=== PATIENT | male | born 1955 | race Caucasian/White ===

== ENCOUNTER 2019-11-25 12:33 | Inpatient (IN) | payer OTHER ==
[~2019-11-25] VITALS: Ht 182.9 cm; Wt 98.0 kg
[2019-11-25 14:56] LABS: Basophils # (auto) 0 10 ^3/uL (0-0.2); Basophils % (auto) 0.4 % (0.0-2.0); Eosinophils # (auto) 0.7 10 ^3/uL (0-0.8); Eosinophils % (auto) 8.3 % (0.0-7.0); Hematocrit 36.8 % (41.0-53.0); Hemoglobin 11.9 g/dL (13.5-17.5); Lymphocytes # (auto) 2.6 10 ^3/uL (0.4-5.4); Lymphocytes % (auto) 29.2 % (10.0-50.0); Mean Corpuscular Hgb Conc. 32.3 g/dL (32.0-36.0); Monocytes # (auto) 0.7 10 ^3/uL (0-1.3); Monocytes % (auto) 8.3 % (0.0-12.0); Neutrophils # (auto) 4.7 10 ^3/uL (1.6-8.6); Neutrophils % (auto) 53.8 % (37.0-80.0); Platelet Count (auto) 283 10^3/uL (140-450); Red Blood Cells 4.09 10^6/uL (4.5-5.90); Red Cell Distribution Width 16.1 % (11.8-14.3); White Blood Cell 8.8 10^3/uL (4.4-10.8)
[2019-11-25 15:14] LABS: BUN/Creatinine Ratio 11.8
[2019-11-25 15:15] LABS: Albumin 2.9 g/dL (3.4-5.0); Calcium 8.6 mg/dL (8.5-10.1)
[2019-11-25 15:17] LABS: Bilirubin, Total 0.2 mg/dL (0.2-1.0); Total Protein 7.4 g/dL (6.4-8.2)
[2019-11-25 15:20] LABS: INR 0.97 (0.9-1.15); Partial Thromboplastin Time 33.8 sec (23.64-32.05)
[2019-11-25] MEDS ORDERED: NITROGLYCERIN 0.4 MG SL TAB SL PRN (16:45)
[2019-11-25] MEDS ORDERED: MORPHINE SULF INJ 2 MG/ML SYRINGE 1ML IV PRN (16:45)
[2019-11-25] MEDS ORDERED: VANCOMYCIN PER PHARMACY 0 MG IV SCH (16:45)
[2019-11-25] MEDS ORDERED: DEXTROSE (50%) 50ML SYRG IV PRN (16:45)
[2019-11-25] MEDS ORDERED: FUROSEMIDE 20 MG/2 ML VIAL IV ONE (16:45)
[2019-11-25] MEDS: VANCOMYCIN 1GM/250ML 250 ML IV SCH (18:25)
[2019-11-25] MEDS: ONDANSETRON HCL 4 MG/2 ML VIAL IV PRN (18:26)
[2019-11-25] MEDS: ACCU-CHEK COMFORT CURVE STRIP VI SCH ×2 (18:26→23:44)
[2019-11-25] MEDS: MORPHINE SULF INJ 2 MG/ML SYRINGE 1ML IV PRN (18:26)
[2019-11-25] MEDS: InsuLIN REG 1unit/0.01ml Soln (100units/ml) SC SCH ×2 (18:35→23:44)
[2019-11-25] MEDS: IPRATROPIUM BROM 0.5 MG/2.5ML INH SOL NEB SCH (19:18)
[2019-11-25] MEDS: ALBUTEROL SULF 2.5 MG/0.5ML(0.5%) NEB SOLN NEB SCH (19:19)
[2019-11-25 20:00] VITALS: BP 114/61
--- NOTE | 2019-11-25 20:00 | NUR ---
Telemetry admit from [facility] admitted to Telemetry unit. Patient oriented to primary RN, unit, room, bed, and unit policies regarding patient care and visiting hours. Patient now on continuous telemetry monitoring, tele box #[id number] and telemetry reading on arrival to unit is sinus rhythm 90s. Patient weighed by bedscale and encouraged to call if they need something. All questions and concerns addressed, patient verbalized understanding. Bed in lowest locked position, call light within reach, side rails up x2, fall precautions in place. Will continue to monitor for changes Q1hr and PRN.
[2019-11-25 20:30] VITALS: BP 114/61
[2019-11-25] MEDS: ATORVASTATIN 20 MG TAB PO SCH (21:40)
[2019-11-25] MEDS: PIPERACILLIN-TAZOB 3.375GM 100 ML IV SCH (21:40)
[2019-11-26] MEDS ORDERED: NORT25CA PO (01:31)
[2019-11-26] MEDS ORDERED: DULO60CA PO (01:31)
[2019-11-26] MEDS ORDERED: ASPI-404 PO (01:31)
[2019-11-26] MEDS ORDERED: INSLISPI SC (01:31)
[2019-11-26] MEDS ORDERED: ATO40T PO (01:31)
[2019-11-26] MEDS ORDERED: CYCL1TAB18 PO (01:31)
[2019-11-26] MEDS ORDERED: METO-169 PO (01:31)
[2019-11-26] MEDS ORDERED: INSU1INJ19 SC (01:31)
[2019-11-26] MEDS ORDERED: HYDR-392 PO (01:31)
[2019-11-26] MEDS ORDERED: LISI-646 PO (01:31)
[2019-11-26] MEDS ORDERED: GABA-339 PO (01:31)
[2019-11-26] MEDS ORDERED: OMEG100078 PO (01:31)
[2019-11-26] MEDS ORDERED: CLOP75TA41 PO (01:31)
[2019-11-26] MEDS: HYDROcodone-ACET 5/325MG TAB PO PRN (04:36)
[2019-11-26] MEDS: PIPERACILLIN-TAZOB 3.375GM 100 ML IV SCH ×3 (05:25→22:08)
[2019-11-26 05:53] VITALS: BP 89/64
[2019-11-26] MEDS: ACCU-CHEK COMFORT CURVE STRIP VI SCH ×4 (06:00→23:52)
[2019-11-26 06:30] LABS: Basophils # (auto) 0 10 ^3/uL (0-0.2); Basophils % (auto) 0.2 % (0.0-2.0); Eosinophils # (auto) 0.5 10 ^3/uL (0-0.8); Eosinophils % (auto) 4.8 % (0.0-7.0); Hematocrit 34.9 % (41.0-53.0); Hemoglobin 11.6 g/dL (13.5-17.5); Lymphocytes # (auto) 0.8 10 ^3/uL (0.4-5.4); Lymphocytes % (auto) 8.6 % (10.0-50.0); Mean Corpuscular Hemoglobin 29.3 pg (28.0-32.0); Mean Corpuscular Hgb Conc. 33.4 g/dL (32.0-36.0); Monocytes # (auto) 0.7 10 ^3/uL (0-1.3); Monocytes % (auto) 6.9 % (0.0-12.0); Neutrophils # (auto) 7.6 10 ^3/uL (1.6-8.6); Neutrophils % (auto) 79.5 % (37.0-80.0); Platelet Count (auto) 230 10^3/uL (140-450); Red Blood Cells 3.96 10^6/uL (4.5-5.90); Red Cell Distribution Width 15.9 % (11.8-14.3); White Blood Cell 9.6 10^3/uL (4.4-10.8)
[2019-11-26 06:32] LABS: BUN/Creatinine Ratio 10.1; Calcium 8.3 mg/dL (8.5-10.1); Potassium 4.8 mmol/L (3.5-5.1)
[2019-11-26] MEDS: InsuLIN REG 1unit/0.01ml Soln (100units/ml) SC SCH ×4 (06:40→23:53)
[2019-11-26 06:49] LABS: Cholesterol 108 mg/dL (< 200); HDL Cholesterol 36 mg/dL (40-59); LDL Cholesterol 34 mg/dL (< 100); Triglycerides 198 mg/dL (< 150)
[2019-11-26] MEDS: VANCOMYCIN 1GM/250ML 250 ML IV SCH ×2 (07:00→17:39)
[2019-11-26] MEDS: ALBUTEROL SULF 2.5 MG/0.5ML(0.5%) NEB SOLN NEB SCH ×3 (07:56→17:50)
[2019-11-26] MEDS: IPRATROPIUM BROM 0.5 MG/2.5ML INH SOL NEB SCH ×3 (07:56→17:50)
[2019-11-26 08:00] VITALS: BP 101/60
[2019-11-26] MEDS: FUROSEMIDE 40 MG TAB PO SCH (10:00)
[2019-11-26] MEDS: ASPirin 81 mg TAB PO SCH (10:00)
--- NOTE | 2019-11-26 10:38 | NUR ---
WOUND CARE NOTE: Wound care in to see patient per wound care request regarding wounds that are noted present on admission. Bedside nurse took photograph of patient's wounds upon admission for reference. Patient is 64 years old male admitted for R Foot Pain. Patient is resting in bed in Rm. 292A. He's awake, alert and fully oriented. Patient is in no stated pain at this time. He's self turning and repositioning and his Blake score is 18. Patient reported that he's ambulatory but he's not walking much to avoid pressure to his foot and uses wheelchair to move around at home. Noted patient's R plantar heel has open, necrotic wound measuring [id number]. Wound is red with black eschar. Jaret wound is yellow hyperkeratotic skin. Dr. Royal arrived at bedside to see patient, cleansed and changed Rt heel wound dressing. Dr. Royal talked to patient regarding possibility of wound debridement of Rt heel/foot with possible wound vac application. Patient's L posterior ankle also noted with 4.5x1.5cm open ulceration with pale pink wound bed, pink jaret wound, minimal serous drainage, no odor noted. His L knee has 3x5cm open, bleeding abrasion. Patient reported that he had a fall about a week ago. Cleansed patient's L knee and L posterior distal ankle wounds with wound cleanser, patted dry with gauze, applied Thera honey gauze to open wounds and covered with Opti foam gentle dressing. Intact blood blister noted to his distal Rt great toe, no drainage/odor noted,left open to air. Patient reported that it is also from the fall a week ago. Dry intact scab noted to his distal L whitlock, area is clean and dry,left open to air. Patient tolerated well. RECOMMENDATION: Nursing to continue with EOD/PRN dressing change to L knee and L posterior distal ankle wounds per MD order; will await for further wound care dressing order post operatively from drafter heating and ventilating, Dietary consult for wounds, redistribute pressure points with pillows,elevate affected extremity on pillows, continue monitoring by wound care while patient is hospitalized. Addendum: 11/26/19 at 1522 by Maria A Fischer RN Amended: Links added.
[2019-11-26 12:00] VITALS: BP 117/72
[2019-11-26 12:02] LABS: Urine WBC None Seen /hpf (0 - 3)
[2019-11-26 12:14] LABS: Urine Bacteria NONE SEEN /hpf (None Seen); Urine Blood Negative /uL (Negative); Urine Specific Gravity 1.011 (1.001-1.035)
[2019-11-26] MEDS ORDERED: MIDAZOLAM HCL 1MG/1ML-2 ML VIAL ONE (12:16)
[2019-11-26] MEDS ORDERED: PROPOFOL 10 MG/ML 20 ML IV ONE (12:17)
[2019-11-26] MEDS ORDERED: GLYCOPYRROLATE 0.2 MG/ML 1ML VIAL ONE (12:17)
[2019-11-26] MEDS ORDERED: ONDANSETRON HCL 4 MG/2 ML VIAL ONE (12:17)
[2019-11-26] MEDS ORDERED: ePHEDrine SULFATE 50 MG/ML AMP ONE (12:17)
[2019-11-26] MEDS: ONDANSETRON HCL 4 MG/2 ML VIAL IV PRN (12:39)
[2019-11-26] MEDS ORDERED: ceFAZolin 1GM/50ML 100 ML IV ONE (13:06)
[2019-11-26] MEDS ORDERED: FAMOTIDINE (10MG/ML) 2ML VL IV ONE (14:15)
--- NOTE | 2019-11-26 14:16 | NUR ---
OFF UNIT Addendum: 11/26/19 at 1417 by Elsa Galvan RN Amended: Links added.
[2019-11-26] MEDS ORDERED: BUPIVACAINE HCL 50 ML ONE (14:21)
[2019-11-26] MEDS ORDERED: LIDOCAINE 1% HCL (LOCAL ANESTH.) INJ 20ML MDV ONE ×2 (14:21)
[2019-11-26 14:58] VITALS: BP 117/72
--- NOTE | 2019-11-26 15:04 | NUR ---
OFF UNIT Addendum: 11/26/19 at 1504 by Elsa Galvan RN Amended: Links added.
[2019-11-26] MEDS ORDERED: fentaNYL CITRATE 100 MCG/2 ML VL ONE (15:10)
[2019-11-26] MEDS ORDERED: KETAMINE HCL 10 ML ONE (15:27)
[2019-11-26] MEDS ORDERED: ONDANSETRON HCL 4 MG/2 ML VIAL IV PRN (16:15)
[2019-11-26] MEDS ORDERED: fentaNYL CITRATE 100 MCG/2 ML VL IV PRN (16:15)
[2019-11-26] MEDS ORDERED: MORPHINE SULFATE 4 MG/ML SYR/VIAL IV PRN (16:15)
[2019-11-26] MEDS ORDERED: HYDROmorphone HCL 2 MG/ML VL IV PRN (16:15)
[2019-11-26] MEDS ORDERED: ACCU-CHEK COMFORT CURVE STRIP VI ONE (16:15)
--- NOTE | 2019-11-26 17:50 | NUR ---
Respiratory note: SCHEDULED MED NEB TX NOT GIVEN. PT WAS AWAKE AND ALERT, NO RESP DISTRESS NOTED. PT STATED HE HAD JUST GOT BACK FROM SURGERY AND DID NOT WANT TX AT THIS TIME. HR 95, RR 16, SPO2 95% ON ROOM AIR. PT STATED HE WOULD TAKE TX IN THE AM.
--- NOTE | 2019-11-26 19:50 | NUR ---
Opening Shift Note Assumed care of patient, awake and alert. No S/S of distress/SOB or pain. Instructed on POC and to call for assist PRN. Bed in lowest locked position, call light within reach, side rails up x2, fall precautions in place. Will continue to monitor for changes Q1hr and PRN.
[2019-11-26] MEDS: MORPHINE SULF INJ 2 MG/ML SYRINGE 1ML IV PRN (20:01)
[2019-11-26 21:54] VITALS: BP 133/76
[2019-11-26] MEDS: FAMOTIDINE (10MG/ML) 2ML VL IV SCH (22:08)
[2019-11-26] MEDS: ATORVASTATIN 20 MG TAB PO SCH (22:08)
[2019-11-27] MEDS: MORPHINE SULF INJ 2 MG/ML SYRINGE 1ML IV PRN ×6 (04:32→20:18)
[2019-11-27 05:00] VITALS: BP 128/75
[2019-11-27 05:30] LABS: Basophils # (auto) 0 10 ^3/uL (0-0.2); Basophils % (auto) 0.2 % (0.0-2.0); Eosinophils # (auto) 0.7 10 ^3/uL (0-0.8); Eosinophils % (auto) 7.5 % (0.0-7.0); Hematocrit 32.9 % (41.0-53.0); Hemoglobin 11.1 g/dL (13.5-17.5); Lymphocytes # (auto) 0.9 10 ^3/uL (0.4-5.4); Lymphocytes % (auto) 9.6 % (10.0-50.0); Mean Corpuscular Hemoglobin 29.7 pg (28.0-32.0); Mean Corpuscular Hgb Conc. 33.9 g/dL (32.0-36.0); Mean Corpuscular Volume 87.7 fL (80.0-100.0); Monocytes # (auto) 0.6 10 ^3/uL (0-1.3); Monocytes % (auto) 6.3 % (0.0-12.0); Neutrophils # (auto) 7.6 10 ^3/uL (1.6-8.6); Neutrophils % (auto) 76.4 % (37.0-80.0); Platelet Count (auto) 229 10^3/uL (140-450); Red Blood Cells 3.75 10^6/uL (4.5-5.90); Red Cell Distribution Width 15.7 % (11.8-14.3); White Blood Cell 9.9 10^3/uL (4.4-10.8)
[2019-11-27 05:54] LABS: Calcium 8.1 mg/dL (8.5-10.1); Potassium 4.8 mmol/L (3.5-5.1)
[2019-11-27 05:57] LABS: BUN/Creatinine Ratio 9.5
[2019-11-27] MEDS: ACCU-CHEK COMFORT CURVE STRIP VI SCH ×3 (06:00→18:02)
[2019-11-27] MEDS: VANCOMYCIN 1GM/250ML 250 ML IV SCH ×2 (06:07→16:37)
[2019-11-27] MEDS: InsuLIN REG 1unit/0.01ml Soln (100units/ml) SC SCH ×3 (06:34→18:06)
[2019-11-27] MEDS: IPRATROPIUM BROM 0.5 MG/2.5ML INH SOL NEB SCH ×3 (06:55→18:43)
[2019-11-27] MEDS: ALBUTEROL SULF 2.5 MG/0.5ML(0.5%) NEB SOLN NEB SCH ×3 (06:55→18:43)
[2019-11-27] MEDS: PIPERACILLIN-TAZOB 3.375GM 100 ML IV SCH ×3 (07:09→21:58)
[2019-11-27 09:00] VITALS: BP 160/70
[2019-11-27] MEDS: ASPirin 81 mg TAB PO SCH (10:00)
[2019-11-27] MEDS: FAMOTIDINE (10MG/ML) 2ML VL IV SCH ×2 (10:21→21:58)
[2019-11-27] MEDS: FUROSEMIDE 40 MG TAB PO SCH (10:42)
--- NOTE | 2019-11-27 10:55 | NUR ---
WOUND CARE NOTE: Applied wound vac to patient's R heel wound per MD order. Patient undergone debridement of Rt foot wound yesterday 11/26/19. Home wound vac paper works request filled up, signed by Dr. Aguilar and placed in chart. Addendum: 11/27/19 at 1557 by Maria A Fischer RN WOUND CARE NOTE: Wound care in to apply wound vac to patient's R heel wound. Patient came in with large necrotic Diabetic Foot Ulcer to Rt heel. He's one day s/p debridement of Rt foot wound. Patient's education given regarding NPWT, verbalized understanding. Patient premedicated by his bedside nurse prior dressing change. Removed patient's Rt foot wound dressing. Cleansed patient's Rt foot wound with wound cleanser. Open wound to Rt heel measuring 9x5.5x1.5cm. Wound is red with palpable bone. Jaret wound is pink/red, minimal sanguinous drainage noted, no odor noted. Applied skin protectant and transparent drape to jaret wound to protect skin. Fill wound cavity with one piece black foam dressing, connected another piece of black foam forming bridge to R dorsal foot. Covered foam dressing with transparent drape, applied trac pad and attached tubings. Run wound vac at 125 mmHg continuos as MD ordered. Good suction and seal noted. No leak detected. Patient tolerated well. Elevated patient's RLE on pillows. New photograph of post debridement R foot wound are taken for reference. Patient is on consistent Carb Diet. Dietary is on board. Patient is on IV antibiotic. RECOMMENDATION: Wound care to change Rt foot wound vac dressing Q3Days/PRN per MD order, continuation of all other wound care order prescribed by MD, continue with skin/wound plan of care, continue monitoring by wound care while patient is hospitalized.
[2019-11-27 13:00] VITALS: BP 131/76
--- NOTE | 2019-11-27 14:11 | NUR ---
Assessment Patient is a 64-year-old male who is alert and oriented. Prior to admission patient lived with his sister Tasia ) and functioned with assistance. Patient resides in [facility]. Patient informed me , Dr. Royal refer him to [facility] for a procedure. Patient informed me he has a walker, wheelchair, and cane for home use. Per patient he will return home to his prior living arrangements post discharge and Francis transportation will need to be arranged. Advised patient there is a social service consult for wound vac. Per patient he is on service with [employer] and would like to resume service with [employer]. Informed patient clinical information will be faxed to [facility] and [facility] for wound vac. Informed Patient he has the right to participate in all discharge planning. Patient verbalized understanding and agreed to discharge plan. , Dr. Aguilar advised me patient will be going home with IV abx. Informed patient regarding home IV abx. Per patient his sister can assist with IV abx. Informed patient when doctor puts in order for home IV abx [employer] Alexia will complete IV abx. Faxed clinical information to [employer] and [facility]. Per Oscar [phone] with [employer] they will resume service for patient within 24-48hrs upon d/c day. TRAY Hale will obtain authorization. Addendum: 11/27/19 at 1416 by MAIK RIVAS Amended: Links added.
--- NOTE | 2019-11-27 14:21 | NUR ---
Nutrition Assessment Notes Please refer to link for full assessment notes. Est Energy needs: 3536-2801 kcals (17-20 kcal/kgBW) Est Protein needs: 121-152 gms/day (1.2-1.5 gm/kgBW) Will continue to monitor and reassess prn. Addendum: 11/27/19 at [address] Amended: Links added.
[2019-11-27 16:28] VITALS: BP 130/71
--- NOTE | 2019-11-27 19:15 | NUR ---
Assumed care of patient. Patient alert and orientated x4. No sob or distress noted. POC reviewed. Bed locked in lowest position. Wound vac on right foot heal. Call light within reach. Will continue to monitor.
--- NOTE | 2019-11-27 19:55 | NUR ---
PICC line nurse at bedside. Will continue to monitor.
--- NOTE | 2019-11-27 20:00 | NUR ---
PICC line placement Patient/Patient significant other educated on need for PICC line placement. All risks and benefits explained and all questions and concerns addressed prior to procedure. Noted past medical history and allergies with no contraindications. INR and Plt counts within acceptable range. 4 fr PICC line inserted via RIGHT BASILIC vein using [employer] US and Tip Location System. Sterile technique with maximum barrier precautions utilized. Blood return obtained from each of SINGLE lumens and each flushed easily with NS using proper technique. PICC secured with Stat-lock; biodisc and occlusive dressing applied. Stat portable chest x-ray obtained for PICC tip placement. *Baseline Arm Circumference 26 CM. INTERNAL LENGHT 48CM EXTERNAL LENGHT 0CM PICC lot # [id number]. Note:
[2019-11-27] MEDS ORDERED: LIDOCAINE 1% (LOCAL ANESTH.) PF 5ml SDV ID ONE (20:15)
--- NOTE | 2019-11-27 20:57 | NUR ---
OK to use PICC line Xray completed. OK to use PICC line.
[2019-11-27] MEDS: HYDROcodone-ACET 5/325MG TAB PO PRN (21:21)
[2019-11-27] MEDS: ATORVASTATIN 20 MG TAB PO SCH (21:58)
[2019-11-27] MEDS: SODIUM CHLOR 0.9% PF (SALINE LOCK) 10ML VIAL/SYR IV SCH (21:59)
[2019-11-27 22:20] VITALS: BP 109/67
--- NOTE | 2019-11-28 00:30 | NUR ---
Pain Patient states pain 10/10 on right foot. Will medicate per md orders.
[2019-11-28] MEDS: InsuLIN REG 1unit/0.01ml Soln (100units/ml) SC SCH ×5 (00:31→23:31)
[2019-11-28] MEDS: MORPHINE SULF INJ 2 MG/ML SYRINGE 1ML IV PRN ×6 (00:33→21:33)
--- NOTE | 2019-11-28 01:10 | NUR ---
Pain reassessment. Patient asleep. No signs of distress. chest evenly rising. Will continue to monitor.
[2019-11-28] MEDS: VANCOMYCIN 1GM/250ML 250 ML IV SCH ×2 (01:12→11:40)
--- NOTE | 2019-11-28 04:15 | NUR ---
Pt stating to hot. Patient awake and stating he is to hot. Hr is 128. Bp 117/78. Patient feeling nauseous. Offered patient oxygen. Patient refused stating, he only feels hot. Tried locating a fan, none available. Kept door open to air out room. Patient refused med neb treatment. Patient states this occurred last night as well. Patient now requesting pain meds. pain 10/10. on right foot. Will medicate per md orders. Will continue to monitor.
[2019-11-28 05:20] VITALS: BP 117/74
[2019-11-28] MEDS: PIPERACILLIN-TAZOB 3.375GM 100 ML IV SCH ×2 (05:35→14:28)
[2019-11-28] MEDS: ACCU-CHEK COMFORT CURVE STRIP VI SCH ×5 (05:36→23:30)
[2019-11-28] MEDS: ALBUTEROL SULF 2.5 MG/0.5ML(0.5%) NEB SOLN NEB SCH ×3 (06:59→19:09)
[2019-11-28] MEDS: IPRATROPIUM BROM 0.5 MG/2.5ML INH SOL NEB SCH ×3 (06:59→19:09)
--- NOTE | 2019-11-28 07:23 | NUR ---
Closing note Endorsed care to day shift RN.
--- NOTE | 2019-11-28 07:30 | NUR ---
Opening Shift Note Assumed care of patient, who is alert and oriented x4. Respirations are even and unlabored. No S/S of distress/SOB. Patient reporting 10/10 pain on adult pain scale to right heel. Will medicate patient per MD orders. Patient currently has a wound vac to right heel; s/p debridement. Bilateral posterior tibial pulses present at this time. Bed is low, locked with 2x side rails up. Call light is within reach. Instructed on POC and to call for assist PRN, will continue to monitor for changes Q1hr and PRN.
--- NOTE | 2019-11-28 08:23 | NUR ---
Pain Patient reporting 10/10 pain on adult pain scale. Pain is to right heel. Noted patient to be groaning and facial grimacing. Patient s/p debridement. Medicated per MD order. Will reassess.
--- NOTE | 2019-11-28 08:53 | NUR ---
Reassessment: Pain Upon reassessment patient is reporting little relief from pain medication that was administered. Patient is reporting 8/10 pain on adult pain scale. This nurse offered repositioning, patient refused and would like more pain medication. Discussed pain management options with patient. Will medicate per MD order when due. Bed is low, locked with 2x side rails up. Call light is within reach.
[2019-11-28 09:00] VITALS: BP 133/80
[2019-11-28] MEDS: FUROSEMIDE 40 MG TAB PO SCH (09:21)
[2019-11-28] MEDS: ASPirin 81 mg TAB PO SCH (09:21)
[2019-11-28] MEDS: SODIUM CHLOR 0.9% PF (SALINE LOCK) 10ML VIAL/SYR IV SCH ×2 (09:23→21:33)
[2019-11-28] MEDS: FAMOTIDINE (10MG/ML) 2ML VL IV SCH ×2 (09:23→21:32)
[2019-11-28] MEDS: HYDROcodone-ACET 5/325MG TAB PO PRN (10:33)
--- NOTE | 2019-11-28 12:15 | NUR ---
WOUND CARE NOTE: IN TO CHECK WOUND VAC DRESSING TO RIGHT FOOT AT THIS TIME. VAC IS RUNNING AT 125 MM/HG CONTINUOUS. GOOD SUCTION, NO LEAKS DETECTED. WOUND CARE TEAM WILL CONTINUE TO MONITOR.
--- NOTE | 2019-11-28 12:49 | NUR ---
Pain Patient reporting 9/10 right heel pain on adult pain scale. Medicated per MD order. Will reassess.
[2019-11-28 12:51] VITALS: BP 113/78
--- NOTE | 2019-11-28 13:19 | NUR ---
Reassessment: Pain Upon reassessment patient is reporting 7/10 pain. Patient states he is comfortable at this time. Bed is low, locked with 2x side rails up. Call light is within reach. Will continue to monitor.
--- NOTE | 2019-11-28 16:08 | NUR ---
1605 11/28/19 - Contacted Dr Holland to clarify home IV ABx order, per MD patient c/o severe pain will observe patient over the weekend. Will wait until Sunday.
--- NOTE | 2019-11-28 16:42 | NUR ---
D/C planning Received a call from Dante with [facility]:( [phone]) advising me WOUND VAC will be deliver to bedside between 18:00-20:00.
--- NOTE | 2019-11-28 16:56 | NUR ---
Pain Patient reporting 9/10 right heel pain on adult pain scale. Medicated per MD order. Will reassess.
--- NOTE | 2019-11-28 17:18 | NUR ---
Called pharmacy Per pharmacy Unasyn IV medication will be sent up by 1800.
[2019-11-28 17:19] VITALS: BP 114/68
--- NOTE | 2019-11-28 17:26 | NUR ---
Reassessment: Pain Upon reassessment patient is reporting 7/10 pain after administration of Morphine. Patient states he is comfortable at this time. Bed is low, locked with 2x side rails up. Call light is within reach. Will continue to monitor.
[2019-11-28] MEDS: AMPICILLIN & SULBACTAM SODIUM 3 GM in SODIUM CHL 0.9% 100 ML IV SCH ×2 (18:29→23:30)
--- NOTE | 2019-11-28 19:20 | NUR ---
Opening note Assumed care of patient. Patient alert and orientated x4. No SOB or distress noted. Bed locked in lowest position. Side rails up x2. Poc reviewed. No questions at this time. Call light within reach. Will continue to monitor.
[2019-11-28] MEDS: ATORVASTATIN 20 MG TAB PO SCH (21:32)
[2019-11-28 22:00] VITALS: BP 104/67
--- NOTE | 2019-11-28 23:30 | NUR ---
PAIN Patient states pain 10/10.Right foot. Requesting Percocet. Will medicate per md orders. will continue to monitor.
[2019-11-28] MEDS: OXYCODONE W/ ACETAMINOPHEN 5/325MG TABLET PO PRN (23:32)
--- NOTE | 2019-11-29 | NUR ---
pain reassessment Patient states Percocet worked great. pain down to a 3. Patient resting in bed. Will continue to monitor.
[2019-11-29] MEDS: AMPICILLIN & SULBACTAM SODIUM 3 GM in SODIUM CHL 0.9% 100 ML IV SCH ×2 (04:28→11:01)
[2019-11-29 05:30] VITALS: BP 125/73
[2019-11-29] MEDS: InsuLIN REG 1unit/0.01ml Soln (100units/ml) SC SCH ×3 (06:20→18:14)
[2019-11-29] MEDS: ACCU-CHEK COMFORT CURVE STRIP VI SCH ×3 (06:20→18:14)
--- NOTE | 2019-11-29 07:15 | NUR ---
Opening Shift Note Assumed care of patient, who is alert and oriented x4. Respirations are even and unlabored. No S/S of distress/SOB. Patient currently has a wound vac to right heel; s/p debridement. Bilateral posterior tibial pulses present at this time. Bed is low, locked with 2x side rails up. Call light is within reach. Instructed on POC and to call for assist PRN, will continue to monitor for changes Q1hr and PRN.
--- NOTE | 2019-11-29 07:20 | NUR ---
ENDORSED CARE TO DAY SHIFT RN
[2019-11-29] MEDS: IPRATROPIUM BROM 0.5 MG/2.5ML INH SOL NEB SCH ×3 (07:22→18:37)
[2019-11-29] MEDS: ALBUTEROL SULF 2.5 MG/0.5ML(0.5%) NEB SOLN NEB SCH ×3 (07:22→18:37)
[2019-11-29] MEDS: FAMOTIDINE (10MG/ML) 2ML VL IV SCH ×2 (08:33→22:00)
[2019-11-29] MEDS: ASPirin 81 mg TAB PO SCH (08:33)
[2019-11-29] MEDS: OXYCODONE W/ ACETAMINOPHEN 5/325MG TABLET PO PRN ×2 (08:33→16:44)
[2019-11-29] MEDS: SODIUM CHLOR 0.9% PF (SALINE LOCK) 10ML VIAL/SYR IV SCH ×2 (08:33→22:00)
--- NOTE | 2019-11-29 08:33 | NUR ---
Pain Patient reporting 8/10 right heel pain on adult pain scale. Medicated with Percocet per MD order. Will reassess.
[2019-11-29 09:28] VITALS: BP 107/73
--- NOTE | 2019-11-29 09:33 | NUR ---
Reassessment: pain Upon entering room this nurse found patient to be resting with eyes closed. Respirations are even and unlabored. No distress noted. Bed is low, locked with 2x side rails up. Call light is within reach. Will continue to monitor.
--- NOTE | 2019-11-29 11:14 | NUR ---
RT NOTE: PT REFUSED TX AT THIS TIME. NO SIGNS OF DISTRESS NOTED. ON RA SPO2 95 HR 100 RR 16. PT AWARE THAT RESPIRATORY WILL RETURN FOR NEXT SCHEDULED TX. WILL CONTINUE TO MONITOR.
--- NOTE | 2019-11-29 11:15 | NUR ---
WOUND CARE NOTE: IN TO ASSESS FUNCTION OF WOUND VAC DRESSING TO WOUND ON RIGHT FOOT AT THIS TIME. VAC CONTINUES TO RUN AT 125 MM/HG CONTINUOUS. GOOD SUCTION, NO LEAKS DETECTED. WOUND VAC DRESSING DUE FOR CHANGE TOMORROW. OF NOTE: HOME VAC AND SUPPLIES HAS BEEN DELIVERED TO [facility]. PATIENT WILL BE DISCHARGED HOME WITH HOME VAC/SUPPLIES ONCE HOME IV ANTIBIOTICS HAS BEEN ARRANGED WITH [employer]. WOUND CARE TEAM WILL CONTINUE TO MONITOR.
[2019-11-29 13:00] VITALS: BP 128/93
[2019-11-29 14:50] VITALS: BP 128/93
--- NOTE | 2019-11-29 16:44 | NUR ---
Pain Patient reporting 8/10 right heel pain on adult pain scale. Medicated patient per MD order. Will reassess.
[2019-11-29 17:04] VITALS: BP 132/75
[2019-11-29] MEDS: PIPERACILLIN-TAZOB 3.375GM 100 ML IV SCH (17:24)
--- NOTE | 2019-11-29 17:42 | NUR ---
Reassessment: pain Current pain level is 6/10 on adult pain scale. Patient states he is comfortable at this time. Will continue to monitor.
--- NOTE | 2019-11-29 18:42 | NUR ---
RT NOTE PT WAS SEEN BY RT FOR HHN TX PT TOLERATES WELL VIA MASK. NO ADVERSE REACTION NOTED. CONT ORDERED Addendum: 11/29/19 at 1842 by Angelika Alonzo RT Amended: Links added.
--- NOTE | 2019-11-29 20:00 | NUR ---
Opening Shift Note Assumed care of patient, awake and alert. No S/S of distress/SOB or pain. Patient is status post right heel debridement and has wound vac applied to right heel. Instructed on POC and to call for assist PRN, will continue to monitor for changes Q1hr and PRN. Bed in low position and call light in reach.
[2019-11-29] MEDS: ATORVASTATIN 20 MG TAB PO SCH (22:00)
[2019-11-29 22:10] VITALS: BP 131/78
--- NOTE | 2019-11-30 00:30 | NUR ---
Patient complains of right heel pain 12/11. Medicated with Percocet 5/325 mg 1 tab.
[2019-11-30] MEDS: PIPERACILLIN-TAZOB 3.375GM 100 ML IV SCH ×4 (00:35→17:33)
[2019-11-30] MEDS: OXYCODONE W/ ACETAMINOPHEN 5/325MG TABLET PO PRN ×3 (00:36→16:51)
--- NOTE | 2019-11-30 01:30 | NUR ---
Patient resting comfortably. No distress noted.
[2019-11-30 05:42] VITALS: BP 127/81
[2019-11-30] MEDS: ACCU-CHEK COMFORT CURVE STRIP VI SCH ×4 (06:00→18:02)
[2019-11-30] MEDS: InsuLIN REG 1unit/0.01ml Soln (100units/ml) SC SCH ×4 (06:15→18:02)
[2019-11-30] MEDS: ALBUTEROL SULF 2.5 MG/0.5ML(0.5%) NEB SOLN NEB SCH ×3 (06:43→18:30)
[2019-11-30] MEDS: IPRATROPIUM BROM 0.5 MG/2.5ML INH SOL NEB SCH ×3 (06:43→18:30)
--- NOTE | 2019-11-30 07:30 | NUR ---
Opening Shift Note Assumed care of patient, who is alert and oriented x4. Respirations are even and unlabored. No S/S of distress/SOB. Bed is low, locked with 2x side rails up. Call light is within reach. Instructed on POC and to call for assist PRN, will continue to monitor for changes Q1hr and PRN.
[2019-11-30] MEDS: ASPirin 81 mg TAB PO SCH (08:51)
[2019-11-30] MEDS: FAMOTIDINE (10MG/ML) 2ML VL IV SCH ×2 (08:51→21:43)
--- NOTE | 2019-11-30 08:51 | NUR ---
Pain Patient reporting 9/10 right heel pain on adult pain scale. Patient is s/p wound debridement. Medicated patient per MD order. Will reassess.
[2019-11-30] MEDS: SODIUM CHLOR 0.9% PF (SALINE LOCK) 10ML VIAL/SYR IV SCH ×2 (08:52→21:44)
[2019-11-30 09:00] VITALS: BP 141/84
--- NOTE | 2019-11-30 09:51 | NUR ---
Pain reassessment Current pain level is 6/10 on adult pain scale. Patient states he is comfortable at this time. Bed is low, locked with 2x side rails up. Call light is within reach. Will continue to monitor.
--- NOTE | 2019-11-30 10:45 | NUR ---
WOUND CARE NOTE: IN TO SEE PATIENT AT THIS TIME FOR WOUND VAC DRESSING CHANGE. PATIENT WAS PREMEDICATED FOR PAIN BY BEDSIDE NURSE. PATIENT'S VAC DRESSING REMOVED. THERE IS SCANT AMOUNT OF SANGUINOUS DRAINAGE NOTED AT EXPOSED BONE WITHIN WOUND BED. CLEANSED WOUND WITH WOUND CLEANSER, PATTED DRY WITH STERILE GAUZE. WOUND PHOTO TAKEN AT THIS TIME FOR REFERENCE. WOUND MEASURES 12 X 5 X 2.3 CM. WOUND BED IS RED, WITH SMALL 0.6 X0.6 AREA OF EXPOSED BONE. THERE IS CALLOUS NOTED FROM 1000 TO 0200 OF PERIWOUND, MACERATION NOTED AT 0300 AND 0900 WHERE FISSURED WOUNDS ARE NOTED. REMAINING PERIWOUND AREA IS PINK. APPLIED CAVILON NO STING BARRIER FILM AND CLEAR DRAPE APPLIED TO PERIWOUND AND BRIDGE SKIN AREA AT DORSAL FOOT. APPLIED WHITE FOAM IN WOUND BED BASE, BLACK GRANUFOAM TO WOUND AND BRIDGE AREA OF DORSAL FOOT. COVERED WITH CLEAR DRAPE, TRAC PAD. APPLIED VAC, SETTING AT 125 MM/HG CONTINUOUS. GOOD SUCTION, NO LEAKS DETECTED. APPLIED STOCKINETTE TO FURTHER SECURE DRESSING OVER FOOT. FOOT ELEVATED UP ONTO PILLOWS/FOR EDEMA CONTROL. PATIENT TOLERATED DRESSING CHANGE WELL, NOTING NO PAIN BY PATIENT. RECOMMEND: CONTINUATION WITH ALL WOUND CARE ORDERS PREVIOUSLY PRESCRIBED BY MD. WOUND CARE TEAM WILL CONTINUE TO MONITOR. Addendum: 11/30/19 at 1604 by Ester Lees RN Amended: Links added.
[2019-11-30] MEDS: MORPHINE SULF INJ 2 MG/ML SYRINGE 1ML IV PRN ×2 (10:51→21:27)
--- NOTE | 2019-11-30 10:51 | NUR ---
Wound care/Pain Patient requesting pain medication before wound vac dressing change. Current pain level 7/10 on adult pain scale. Medicated with Morphine 2mg IVP. Will reassess.
[2019-11-30 11:18] LABS: Basophils # (auto) 0 10 ^3/uL (0-0.2); Basophils % (auto) 0.3 % (0.0-2.0); Eosinophils # (auto) 0.6 10 ^3/uL (0-0.8); Eosinophils % (auto) 5.7 % (0.0-7.0); Hematocrit 39.4 % (41.0-53.0); Mean Corpuscular Hemoglobin 28.8 pg (28.0-32.0); Mean Corpuscular Hgb Conc. 32.9 g/dL (32.0-36.0); Mean Corpuscular Volume 87.5 fL (80.0-100.0); Monocytes % (auto) 9.2 % (0.0-12.0); Neutrophils % (auto) 65.8 % (37.0-80.0); Platelet Count (auto) 318 10^3/uL (140-450); Red Cell Distribution Width 15.5 % (11.8-14.3); White Blood Cell 10.7 10^3/uL (4.4-10.8)
--- NOTE | 2019-11-30 11:21 | NUR ---
Pain reassessment Pain 5/10 on adult pain scale after administration of Morphine. Patient resting comfortably at this time. Bed is low, locked with 2x side rails up. Call light is within reach. Will continue to monitor.
[2019-11-30 11:36] LABS: BUN/Creatinine Ratio 10.8; Calcium 8.8 mg/dL (8.5-10.1); Potassium 4.2 mmol/L (3.5-5.1)
[2019-11-30 13:00] VITALS: BP 136/84
--- NOTE | 2019-11-30 14:34 | NUR ---
Nutrition Followup Note Wt: 98.0 kg Pt was sleeping with no family by bedside. per records pt with sepsis due to possible osteomyelitis. pt is currently on CCHO 60 gm diet with adequate PO of 75% x 6 per RN doc Est Energy needs: 8593-0532 kcals (17-20 kcal/kgBW), Est Protein needs: 121-152 gms/day (1.2-1.5 gm/kgBW). Will continue to monitor and reassess prn. Labs: No new labs today 11/26: GLU 231 H, CA 8.1 L. BM: Pt had 1 BM on 11/29 per RN doc Skin: BS 15 mod risk, full details in care process manager doc PES: 1) Obesity aeb 125% IBW and BMI of 30.2 kg/m2 r/t energy intake in excess of energy needs 2) Altered nutrition related lab values aeb hyperglycemia, elev A1c, mod hypoalbuminemia r/t current/chronic medical condition RECOMMENDATION: 1) Continue to closely monitor pt PO intake to meet at least 75% of meals. 2) Consider a daily MVI with 500mg VitC BID. 3) Consider Prostat 1 pkt TID d/t increased protein needs for wound 4) Continue current plan of care
--- NOTE | 2019-11-30 16:51 | NUR ---
Pain Patient reporting 10/10 right heel pain on adult pain scale. Patient is s/p wound debridement. Medicated patient with Percocet 5/325 mg PO as per MD order. Will reassess.
[2019-11-30 17:00] VITALS: BP 135/76
--- NOTE | 2019-11-30 17:51 | NUR ---
Pain reassessment Current pain level is 7/10 on adult pain scale. Patient resting comfortably. Bed is low, locked with 2x side rails up. Call light is within reach. Will continue to monitor.
--- NOTE | 2019-11-30 19:30 | NUR ---
Opening Shift Note Assumed care of patient, awake and alert. Insructed on POC and to call for assist PRN, will continue to monitor for changes Q1hr and PRN.
[2019-11-30] MEDS: ATORVASTATIN 20 MG TAB PO SCH (21:44)
[2019-11-30 22:00] VITALS: BP 117/78
--- NOTE | 2019-11-30 22:10 | NUR ---
dressing changed on both knees and left posterior ankle.
[2019-12-01] MEDS: OXYCODONE W/ ACETAMINOPHEN 5/325MG TABLET PO PRN ×3 (00:55→17:11)
[2019-12-01] MEDS: PIPERACILLIN-TAZOB 3.375GM 100 ML IV SCH ×3 (00:56→11:22)
[2019-12-01] MEDS: ACCU-CHEK COMFORT CURVE STRIP VI SCH ×3 (00:56→12:00)
[2019-12-01] MEDS: InsuLIN REG 1unit/0.01ml Soln (100units/ml) SC SCH ×3 (01:15→11:30)
[2019-12-01 05:00] VITALS: BP 125/82
[2019-12-01] MEDS: ALBUTEROL SULF 2.5 MG/0.5ML(0.5%) NEB SOLN NEB SCH ×2 (06:42→12:57)
[2019-12-01] MEDS: IPRATROPIUM BROM 0.5 MG/2.5ML INH SOL NEB SCH ×2 (06:42→12:57)
--- NOTE | 2019-12-01 07:20 | NUR ---
pt sleeping at this time. respirations even and unlabored. Endorsed to CODY Suazo.
--- NOTE | 2019-12-01 07:30 | NUR ---
Opening Shift Note Assumed care of patient, awake and alert. No S/S of distress/SOB or pain. Instructed on POC and to call for assist PRN, will continue to monitor for changes Q1hr and PRN. Bed is locked and in lowest position. Call light within reach.
[2019-12-01 08:00] VITALS: BP 141/72
[2019-12-01] MEDS: ASPirin 81 mg TAB PO SCH (09:31)
[2019-12-01] MEDS: FAMOTIDINE (10MG/ML) 2ML VL IV SCH (09:31)
[2019-12-01] MEDS: SODIUM CHLOR 0.9% PF (SALINE LOCK) 10ML VIAL/SYR IV SCH (10:00)
--- NOTE | 2019-12-01 11:30 | NUR ---
WOUND CARE NOTE: IN TO ASSESS FUNCTION OF WOUND VAC DRESSING TO WOUND ON RIGHT FOOT AT THIS TIME. VAC CONTINUES TO RUN AT 125 MM/HG CONTINUOUS. GOOD SUCTION, NO LEAKS DETECTED. WOUND CARE TEAM WILL CONTINUE TO MONITOR.
--- NOTE | 2019-12-01 12:44 | NUR ---
WOUND CARE [facility] [employer] CALLED REGARDING REMOVING WOUND VAC AND DRESSING FOR DR. MENDOZA TO ANALYZE WOUND. AMAURI RN STATED HE WOULD BE UP TO PATIENTS ROOM AROUND 2PM. WILL NOTIFY DR. MENDOZA WHEN WOUND VAC IS REMOVED AND READY TO BE ANALYZED.
[2019-12-01 13:14] VITALS: BP 150/79
[2019-12-01] MEDS: MORPHINE SULF INJ 2 MG/ML SYRINGE 1ML IV PRN (14:08)
--- NOTE | 2019-12-01 14:29 | NUR ---
wound vac removed dr trejo office notified.
--- NOTE | 2019-12-01 14:30 | NUR ---
PHOTO TAKEN OF RIGHT HEAL.
--- NOTE | 2019-12-01 14:45 | NUR ---
DR MADDOX BEDSIDE TO ASSESS RIGHT FOOT DEBRIDEMENT. PATIENT CLEARED FOR DISCHARGE, AWAITING S.S TO SETUP HOME HEALTH AND IV ANTIBIOTICS.
--- NOTE | 2019-12-01 14:50 | NUR ---
WOUND CARE PAGE TO REPLACE WOUND VAC.
--- NOTE | 2019-12-01 15:59 | NUR ---
D/C Planning Per Oscar [phone] with [facility] they will resume service for patient within 24-48hrs upon d/c day. Per Oscar with [facility] they can only assist with wound care they do not have an IV abx Nurse available. Informed TRAY Hale regarding Nurse for IV abx. Per TRAY Hale she will ask the infusion company if they can assist with the IV abx.
--- NOTE | 2019-12-01 16:29 | NUR ---
D/C Planning Contact [facility] transportation ) spoke to Keshav. Advised Keshav patient is being discharge home today and to arranged transportation at 18:30 via wheelchair. Advised Keshav for transportation to contact bedside nurse at [phone] upon arrival. Confirmation # for transportation is [phone] . Informed RN Gabriele.
[2019-12-01 17:08] VITALS: BP 145/75
--- NOTE | 2019-12-01 17:31 | NUR ---
WOUND CARE NOTE: IN TO SEE PATIENT AT THIS TIME FOR WOUND VAC DRESSING CHANGE. PATIENT'S VAC DRESSING REMOVED. THERE IS SCANT AMOUNT OF SANGUINOUS DRAINAGE NOTED AT EXPOSED BONE WITHIN WOUND BED. CLEANSED WOUND WITH WOUND CLEANSER, PATTED DRY WITH STERILE GAUZE. WOUND BED IS RED, WITH SMALL 0.6 X0.6 AREA OF EXPOSED BONE. THERE IS CALLOUS NOTED FROM 1000 TO 0200 OF PERIWOUND, MACERATION NOTED AT 0300 AND 0900 WHERE FISSURED WOUNDS ARE NOTED. REMAINING PERIWOUND AREA IS PINK. APPLIED CAVILON NO STING BARRIER FILM AND CLEAR DRAPE APPLIED TO PERIWOUND AND BRIDGE SKIN AREA AT DORSAL FOOT. APPLIED WHITE FOAM IN WOUND BED BASE, BLACK GRANUFOAM TO WOUND AND BRIDGE AREA OF DORSAL FOOT. COVERED WITH CLEAR DRAPE AND TRAC PAD. APPLIED VAC, SETTING AT 125 MM/HG CONTINUOUS. GOOD SUCTION, NO LEAKS DETECTED. APPLIED STOCKINETTE TO FURTHER SECURE DRESSING OVER FOOT. FOOT ELEVATED UP ONTO PILLOWS/FOR EDEMA CONTROL. PATIENT TOLERATED DRESSING CHANGE WELL, NOTING NO PAIN BY PATIENT. RECOMMEND: CONTINUATION WITH ALL WOUND CARE ORDERS PREVIOUSLY PRESCRIBED BY . WOUND CARE TEAM WILL CONTINUE TO MONITOR.
--- NOTE | 2019-12-01 17:36 | NUR ---
IV ANTIBIOTICS [facility] FOR PATIENTS INSURANCE WILL HAVE ANTIBIOTICS DELIVERED TO PATIENT TOMORROW, PATIENT WILL STILL GO HOME TODAY VIA TRANSPORTATION. PATIENTS OWN WOUND VAC IN PLACE.
--- NOTE | 2019-12-01 19:00 | NUR ---
Discharge instructions given as ordered. Encourage to follow up with PMD as instructed. All questions and concerns addressed. Patient verbalized understanding.[facility] LINE REMAINS patient will have IV antibiotics; wound vac in place. Telemetry unit returned to ICU. Patient taken to vehicle via wheelchair with all personal belongings, accompanied by staff and family member. No distress noted at time of departure.
== END 2019-12-01 18:40 | disposition home health service (06) | DRG 314 ==
LOC: ER 12:33 → TELE 12:34 → TELE-WESTW 20:02
PROVIDERS: ADMIT Internal Medicine; ATTEND Internal Medicine
PROC: 0QBL0ZZ Excision of Right Tarsal, Open Approach (ICD-10-PCS; principal; 2019-11-26 14:42)
PROC: 02HV33Z Insertion of Infusion Device into Superior Vena Cava, Percutaneous Approach (ICD-10-PCS; 2019-11-27)
DX: E11.621 Type 2 diabetes mellitus with foot ulcer (principal); M86.8X7 Other osteomyelitis, ankle and foot; I50.43 Acute on chronic combined systolic (congestive) and diastolic (congestive) heart failure; E11.22 Type 2 diabetes mellitus with diabetic chronic kidney disease; E11.40 Type 2 diabetes mellitus with diabetic neuropathy, unspecified; R65.10 Systemic inflammatory response syndrome (SIRS) of non-infectious origin without acute organ dysfunction; I13.0 Hypertensive heart and chronic kidney disease with heart failure and stage 1 through stage 4 chronic kidney disease, or unspecified chronic kidney disease; N18.3 Chronic kidney disease, stage 3 (moderate); L97.519 Non-pressure chronic ulcer of other part of right foot with unspecified severity; E11.69 Type 2 diabetes mellitus with other specified complication; E11.51 Type 2 diabetes mellitus with diabetic peripheral angiopathy without gangrene; J44.9 Chronic obstructive pulmonary disease, unspecified; Z95.820 Peripheral vascular angioplasty status with implants and grafts; D64.9 Anemia, unspecified; F17.210 Nicotine dependence, cigarettes, uncomplicated; I35.0 Nonrheumatic aortic (valve) stenosis; E78.5 Hyperlipidemia, unspecified; I25.10 Atherosclerotic heart disease of native coronary artery without angina pectoris; Z82.49 Family history of ischemic heart disease and other diseases of the circulatory system; Z83.3 Family history of diabetes mellitus; Z91.19 Patient's noncompliance with other medical treatment and regimen
CPT/HCPCS: 36415; 36569; 71045; 73620; 73700; 76000; 80048; 80053; 80061; 80202; 81001; 82962; 83036; 85025; 85610; 85652; 85730; 87070; 87075; 87077; 87186; 87205; 93306; 93926; 94640; G0378; J0690; J1815; J2001; J2250; J2405; J2543; J2704; J3490